=== PATIENT | female | born 1975 ===

== ENCOUNTER 2019-01-30 18:42 | Emergency (ER) | payer SELFPAY ==
[2019-01-30 18:52] VITALS: BMI 28.3
[2019-01-30 20:14] LABS: HCG,QUALITATIVE URINE NEGATIVE (NEGATIVE)
[2019-01-30 20:15] VITALS: BP 128/83; PULSE 90; RESP 20; TEMP 101.1; O2SAT 99
[2019-01-30 20:15] LABS: SQUAMOUS EPITHIAL 2 /hpf (0-5); URINE BILIRUBIN NEGATIVE (NEGATIVE); URINE BLOOD 2+ (NEGATIVE); URINE CLARITY Clear (Clear); URINE COLOR Yellow (YELLOW); URINE GLUCOSE (UA) NORMAL (Normal); URINE LEUKOCYTE ESTERASE NEG Leu/uL (Negative); URINE PROTEIN NEGATIVE (NEGATIVE); URINE UROBILINOGEN NORMAL mg/dL (0.2-1.0)
--- NOTE | 2019-01-30 20:32 | C.PDOC ---
History Of Present Illness 43-year-old female presents to the ED for evaluation of fever associated with generalized body aches and left upper back pain for 3 days. Patient states she was at work today when she began feeling dizzy and her symptoms worsened. Patient also reports headache and nausea. She denies vomiting, diarrhea, and abdominal pain. Time Seen by Provider: 01/30/19 19:28 Chief Complaint (Nursing): ENT Problem History Per: Patient History/Exam Limitations: no limitations Onset/Duration Of Symptoms: Days (3) Current Symptoms Are (Timing): Still Present Quality Of Discomfort: "Pain" Associated Symptoms: denies: Incontinence, New Weakness, New Numbness Additional History Per: Patient Past Medical History Reviewed: Historical Data, Nursing Documentation, Vital Signs Vital Signs: Last Vital Signs Temp 101.1 F H 01/30/19 20:13 Pulse 90 01/30/19 20:13 Resp 20 01/30/19 20:13 BP 128/83 01/30/19 20:13 Pulse Ox 99 01/30/19 20:13 Primary Care Provider: FAMILY PROVIDER,NO - Medical History PMH: HTN Surgical History: No Surg Hx Family History: States: Unknown Family Hx - Social History Hx Alcohol Use: Yes Hx Substance Use: No - Immunization History Hx Tetanus Toxoid Vaccination: No Hx Influenza Vaccination: No Hx Pneumococcal Vaccination: No Review Of Systems Constitutional: Positive for: Fever Gastrointestinal: Positive for: Nausea. Negative for: Vomiting, Abdominal Pain, Diarrhea Musculoskeletal: Positive for: Back Pain (left, upper ) Physical Exam - Physical Exam Appears: Non-toxic, No Acute Distress Skin: Normal Color, Warm, Dry, No Rash Head: Atraumatic, Normacephalic Eye(s): bilateral: Normal Inspection, PERRL, EOMI Ear(s): Bilateral: Normal Nose: Normal, No Discharge Oral Mucosa: Moist Tongue: No Swelling Lips: Normal Appearing, No Swelling Throat: Normal, No Erythema, No Exudate Neck: Normal ROM, Supple Lymphatic: Normal Exam Chest: Symmetrical, No Deformity, No Tenderness Cardiovascular: Rhythm Regular, No Friction Rub, No Murmur Respiratory: No Rales, Rhonchi (scattered), No Stridor, No Wheezing Gastrointestinal/Abdominal: Soft, No Tenderness, No Guarding, No Rebound Back: Normal Inspection, No CVA Tenderness Extremity: Normal ROM, Capillary Refill (less than 2 seconds ) Neurological/Psych: Oriented x3, Normal Speech, Normal Cognition Gait: Steady ED Course And Treatment - Laboratory Results Lab Results: Urine Color Yellow (YELLOW) 01/30/19 20:05 Urine Clarity Clear (Clear) 01/30/19 20:05 Urine pH 7.0 (5.0-8.0) 01/30/19 20:05 Ur Specific [place] 1.015 (1.003-1.030) 01/30/19 20:05 Urine Protein Negative mg/dL (NEGATIVE) 01/30/19 20:05 Urine Glucose (UA) Normal mg/dL (Normal) 01/30/19 20:05 Urine Ketones Negative mg/dL (NEGATIVE) 01/30/19 20:05 Urine Blood 2+ (NEGATIVE) H 01/30/19 20:05 Urine Nitrate Negative (NEGATIVE) 01/30/19 20:05 Urine Bilirubin Negative (NEGATIVE) 01/30/19 20:05 Urine Urobilinogen Normal mg/dL (0.2-1.0) 01/30/19 20:05 Ur Leukocyte Esterase Neg Avelina/uL (Negative) 01/30/19 20:05 Urine WBC (Auto) < 1 /hpf (0-5) 01/30/19 20:05 Urine RBC (Auto) 18 /hpf (0-3) H 01/30/19 20:05 Ur Squamous Epith Cells 2 /hpf (0-5) 01/30/19 20:05 Urine HCG, Qual Negative (NEGATIVE) 01/30/19 20:05 Urine HCG, Qual Negative (NEGATIVE) 01/30/19 20:05 O2 Sat by Pulse Oximetry: 99 (on RA) Pulse Ox Interpretation: Normal Medical Decision Making Medical Decision Making: Progress: CXR and urinalysis ordered. Flu swab ordered, resulted negative. Strep test ordered, resulted negative. Toradol IM given. On re-exam, the patient reports improvement. Lungs are CTA, heart is RRR, abdomen is soft, non-tender and the patient is tolerating PO well. Disposition - Disposition Referrals: [facility] [Outside] [facility] [Outside] Disposition: HOME/ ROUTINE Disposition Time: 21:27 Condition: GOOD Additional Instructions: Follow up with the medical doctor within 1-2 days. Return if worsened. 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 - Scribe Statement The provider has reviewed the documentation as recorded by the Scribe (Skylar Packer) All medical record entries made by the Scribe were at my direction and per sonally dictated by me. I have reviewed the chart and agree that the record accurately reflects my personal performance of the history, physical exam, medical decision making, and the department course for this patient. I have also personally directed, reviewed, and agree with the discharge instructions and disposition.
--- NOTE | 2019-01-31 07:26 | RAD ---
Date of service: 01/30/2019 HISTORY: COUGH, FEVER COMPARISON: No prior. TECHNIQUE: Chest PA and lateral views FINDINGS: LUNGS: No active pulmonary disease. PLEURA: No significant pleural effusion identified. No pneumothorax apparent. CARDIOVASCULAR: No aortic atherosclerotic calcification present. Normal cardiac size. No pulmonary vascular congestion. OSSEOUS STRUCTURES: No significant abnormalities. VISUALIZED UPPER ABDOMEN: Normal. OTHER FINDINGS: None. IMPRESSION: No acute cardiopulmonary disease appreciated.
== END 2019-01-30 21:58 | disposition home or self-care (01) ==
LOC: C.ER 18:42
DX: J11.1 Influenza due to unidentified influenza virus with other respiratory manifestations (principal); B34.9 Viral infection, unspecified; I10 Essential (primary) hypertension
CPT/HCPCS: 71046; 81001; 84703; 87070; 87430; 87804; 96372; 99284; J1885